=== PATIENT | female | born 1980 | race Hispanic/Latino ===

== ENCOUNTER 2018-07-12 15:16 | Emergency (ER) | payer MEDICAID ==
[2018-07-12] MEDS ORDERED: IOHEXOL-350 75 ML VIAL IV ONE (15:42)
[2018-07-12 16:17] LABS: BASOPHILS % (AUTO) 0.5 % (0.0-5.0); EOSINOPHILS % (AUTO) 1.3 % (0.0-8.0); LYMPHOCYTES % (AUTO) 32.2 % (21.0-51.0); MEAN CORPUSCULAR HEMOGLOBIN 29.1 pg (27.0-33.0); MEAN CORPUSCULAR HGB CONC 32.9 g/dL (32.0-36.0); MEAN CORPUSCULAR VOLUME 88.4 fL (79-99); MONOCYTES % (AUTO) 10.9 % (3.0-13.0); NEUTROPHILS % (AUTO) 55.1 % (40.0-77.0); NUCLEATED RED BLOOD CELLS 0.2 % (0.0-0.19); PLATELET COUNT (AUTO) 234 K/uL (130-400); WHITE BLOOD COUNT (AUTO) 6.4 K/uL (4.8-10.8)
[2018-07-12 16:28] LABS: CREATININE 0.7 mg/dL (0.5-1.5); POTASSIUM 3.6 mmol/L (3.5-5.1)
[2018-07-12 16:32] LABS: ALBUMIN 3.4 g/dL (3.5-5.0); BILIRUBIN,TOTAL 0.1 mg/dL (0.2-1.0); TOTAL PROTEIN, SERUM 6.7 g/dL (6.0-8.3)
[2018-07-12 16:36] LABS: INR 0.92 (0.85-1.15); PROTHROMBIN TIME 9.7 SEC (9.6-11.6)
[2018-07-12] MEDS ORDERED: KETOROLAC TROMETHAMINE 30MG/ML ONE (17:34)
[2018-07-12] MEDS ORDERED: TETANUS/DIPHTHERIA TOXOID [ADULT] 0.5 ML VIAL IM ONE (17:35)
[2018-07-12 17:40] LABS: APPEARANCE,URINE Clear (CLEAR); BILIRUBIN,URINE Negative (NEGATIVE); COLOR,URINE Yellow (YELLOW); GLUCOSE, URINE (UA) Negative (NEGATIVE); KETONES,URINE Negative (NEGATIVE); LEUKOCYTE ESTERASE ,URINE Small (NEGATIVE); NITRATE,URINE Negative (NEGATIVE); OCCULT BLOOD,URINE Negative (NEGATIVE); PROTEIN,URINE Negative (NEGATIVE); UROBILINOGEN,URINE 0.2 mg/dL (0.2-1.0)
[2018-07-12 17:45] LABS: HCG,QUAL RESULT NEGATIVE (NEGATIVE)
[2018-07-12 17:49] LABS: AMPHET/METH SCREEN,URINE NEGATIVE (NEGATIVE); BARBITURATE SCREEN, URINE NEGATIVE (NEGATIVE); BENZODIAZEPINES SCREEN,URINE NEGATIVE (NEGATIVE); CANNABINOID SCREEN,URINE POSITIVE (NEGATIVE); COCAINE SCREEN,URINE POSITIVE (NEGATIVE); OPIATE SCREEN,URINE NEGATIVE (NEGATIVE); PHENCYCLIDINE SCREEN,URINE NEGATIVE (NEGATIVE)
[2018-07-12 17:52] LABS: BACTERIA,URINE Rare /HPF (None Seen); RBC,URINE 0-1 /HPF (0-1)
[2018-07-12 17:53] LABS: SQUAMOUS EPITHELIAL CELL,UR Few /HPF (0-2)
== END 2018-07-12 17:50 | disposition home or self-care (01) ==
LOC: EDH 15:16
DX: S40.012A Contusion of left shoulder, initial encounter (principal); S30.1XXA Contusion of abdominal wall, initial encounter; S40.022A Contusion of left upper arm, initial encounter; S20.212A Contusion of left front wall of thorax, initial encounter; S50.02XA Contusion of left elbow, initial encounter; W17.89XA Other fall from one level to another, initial encounter; Y93.89 Activity, other specified; Y92.89 Other specified places as the place of occurrence of the external cause; Y99.8 Other external cause status; J45.909 Unspecified asthma, uncomplicated
CPT/HCPCS: 36415; 71260; 73030; 73080; 74177; 80053; 80305; 81001; 81025; 82150; 82550; 83690; 84484; 85025; 85610; 85730; 90471; 90714; 93005; 96374; 99284; J1885; Q9967

== ENCOUNTER 2022-10-06 13:19 | Emergency (ER) | payer MEDICAID ==
[~2022-10-06] VITALS: Ht 152.4 cm; Wt 44.5 kg
[2022-10-06 13:20] VITALS: BP 121/94
[2022-10-06] MEDS ORDERED: KETOROLAC 30MG VIAL (30MG/ML) IM ONE (15:30)
[2022-10-06] MEDS ORDERED: HYDROCODONE/ACETAMINOPHEN 5/325 MG TAB PO ONE (15:30)
[2022-10-06] MEDS ORDERED: ACET-2079 PO (15:32)
[2022-10-06] MEDS ORDERED: CYCL5TAB PO (15:32)
[2022-10-06] MEDS ORDERED: IBUP-2070 PO (15:32)
== END 2022-10-06 15:56 | disposition home or self-care (01) ==
LOC: EDH 13:19
DX: S63.92XA Sprain of unspecified part of left wrist and hand, initial encounter (principal); S60.222A Contusion of left hand, initial encounter; J45.909 Unspecified asthma, uncomplicated; F17.210 Nicotine dependence, cigarettes, uncomplicated; V29.99XA Rider (driver) (passenger) of other motorcycle injured in unspecified traffic accident, initial encounter; Y93.89 Activity, other specified; Y92.89 Other specified places as the place of occurrence of the external cause; Y99.8 Other external cause status
CPT/HCPCS: 99283; 73130; 96372; 29125; J1885

== ENCOUNTER 2022-12-21 19:48 | Emergency (ER) | payer MEDICAID ==
[~2022-12-21] VITALS: Ht 152.4 cm; Wt 43.5 kg
[~2022-12-21 19:48] MED LIST: ACET-2079 PO; CYCL5TAB PO; IBUP-2070 PO
[2022-12-21 20:18] VITALS: BP 114/71; PULSE 66; RESP 20
== END 2022-12-21 23:01 | disposition left against medical advice (07) ==
LOC: EDH 19:48
DX: R10.2 Pelvic and perineal pain (principal); R25.2 Cramp and spasm; Z53.21 Procedure and treatment not carried out due to patient leaving prior to being seen by health care provider
CPT/HCPCS: 99281

== ENCOUNTER 2024-05-20 14:48 | Emergency (ER) | payer BC, MEDICAID ==
[~2024-05-20] VITALS: Ht 152.4 cm; Wt 45.4 kg
[~2024-05-20 14:48] MED LIST changes: -CYCL5TAB PO; +CYCL5TAB3 PO
[2024-05-20 15:26] LABS: SARS-CoV-2, RNA, NAAT NEGATIVE SARS CoV-2 (NEGATIVE)
--- NOTE | 2024-05-20 15:30 | ERN ---
ED Note History of Present Illness Stated Complaint: FLU LIKE SYMPTOMS X 1 WEEK Chief Complaint: Flu Symptoms Time Seen by MD: 15:02 Time Seen by Midlevel: 15:20 Dictation: Ms Edwards is a 44-year-old female with history of asthma who presented to the emergency department this afternoon for evaluation of flu symptoms. She reports five days of chills, fever, productive cough (white/yellow sputum), nasal congestion, body aches and watery diarrhea. She reports nausea and poor appetite. She states she has been drinking water. She last took ibuprofen today at 9:00 a.m... She states her grandson was diagnosed with the flu and she has a daughter with similar symptoms. She states that she feels like her mouth is very dry and she is thirsty. Allergies: Coded Allergies: No Known Allergies (Unverified Allergy, Unknown, 10/06/22) Home Meds Active Scripts Cyclobenzaprine HCl (Cyclobenzaprine HCl) 5 Mg Tablet, 5 MG PO DAILYDINNER for 5 Days, #5 TAB Prov:TOYIN VERDUZCO 10/06/22 Ibuprofen (Ibuprofen) 600 Mg Tablet, 600 MG PO Q6H PRN for PAIN, #15 TAB Prov:TOYIN VERDUZCO 10/06/22 Acetaminophen with Codeine (Acetaminophen-Cod #3 Tablet) 1 Each Tablet, 1 TAB PO Q4H PRN for S63.90XA for 5 Days, #7 TAB Prov:TOYIN VERDUZCO 10/06/22 Past Medical History Past Medical History: Asthma Surgical History: Hysterectomy PSYCH History: no pertinent psych hx Social History: Negative, Lives with family RN Note Reviewed/Agreed w/PFSH: Yes Review of System Dictation REVIEW OF SYSTEMS: CONSTITUTIONAL: Patient denies sweats and weight changes. Reports fatigue, general weakness, fever, and chills EYES: Patient denies any visual symptoms. EARS, NOSE, AND THROAT: No difficulties with hearing. No symptoms of rhinitis or sore throat. Reports nasal congestion CARDIOVASCULAR: Patient denies chest pains, palpitations, orthopnea and paroxy smal nocturnal dyspnea. RESPIRATORY: No dyspnea on exertion, no wheezing. Reports cough with thick white/yellow sputum GI: No nausea, vomiting, constipation, abdominal pain, hematochezia or melena. Reports no appetite, intermittent nausea, and some liquid stools : No urinary hesitancy or dribbling. No nocturia or urinary frequency. No abnormal urethral discharge. MUSCULOSKELETAL: Reports body aches NEUROLOGIC: No chronic headaches, no seizures. Patient denies numbness, tingling or weakness. PSYCHIATRIC: Patient denies problems with mood disturbance. No problems with anxiety. ENDOCRINE: No excessive urination or excessive thirst. DERMATOLOGIC: Patient denies any rashes or skin changes. Initial Vital Sign VS Vital Signs Date Time Temp Pulse Resp B/P (MAP) Pulse Ox O2 Delivery O2 Flow Rate FiO2 05/20/24 14:54 99.0 84 20 102/60 96 Room Air 0 Physical Exam Dictation Vital signs: Reviewed. Afebrile; temp 99 Constitutional: No acute distress. Non-toxic appearing. Head/Face: Normocephalic, atraumatic. Eyes: Periorbital areas with no swelling, redness, or edema. Lids and lashes are normal. Conjunctival injection is absent. Sclera anicteric. Pupils equal, round, reactive to light. ENT: Pinnas intact and no signs of trauma or erythema. Ear canals clear and no discharge. TMs no erythema. No nasal discharge or bleeding noted. Oropharynx with no exudate, redness, swelling, masses, exudates, or evidence of obstruction. Uvula midline. Mucous membranes slightly dry Neck: Trachea midline, no masses palpated, and no cervical lymphadenopathy. No swelling. Supple, full range of motion. Chest/Axilla: No tenderness, no crepitus, no paradoxical movement, no retractions. Cardiovascular: Regular rate, regular rhythm, no murmur, no gallops. Symmetric pulses. No peripheral edema. Normotensive; BP 102/60. Heart rate 84 Respiratory: Tachypneic; RR 24. Lung sounds with inspiratory/expiratory wheeze. No rhonchi or rales. Cough noted. Room air SpO2 96% Gastrointestinal: Inspection is normal. No distention is appreciated. Bowel sounds are normal. No mass or organomegaly . There is no tenderness. No rebound. No rigidity. No voluntary or involuntary guarding. No Valenzuela's sign. Neurological: Normal speech, gross motor function intact, gross sensory function intact. No focal weakness/Paresthesia. Musculoskeletal/Extremities: All extremities have full range of motion, no pain or tenderness on palpation. Symmetric pulses. Integumentary: Intact. Skin is normal color, warm and dry. Cap refill less than 3 seconds. Results (Laboratory/Radiology) Laboratory/Radiology Laboratory Tests Test 05/20/24 14:58 Influenza Type A Antigen Positive For Type A Influenza Type B Antigen Negative For Type B SARS-CoV-2, RNA, NAAT NEGATIVE SARS CoV-2 Labs Reviewed?: Yes EKG Comment: EKG Interpretation: Time Reviewed:1506 Ventricular rate:100 bpm WV Interval: 124 ms QRS duration: [address] segment elevation or depression. Clinical impression: Sinus rhythm/sinus tachycardia EKG Reviewed and interpreted by Dr. Huertas X-RAY Comment: Chest x-ray unremarkable; no infiltrates As interpreted by myself. ED Course ED Course Orders Procedure Category Date Status Time Chest 1vw RAD 05/20/24 Resulted 14:56 Influenza Type A & B, LAB 05/20/24 Complete Rapid 14:56 Covid Rna Naat LAB 05/20/24 Complete 14:56 12 Lead Ekg Tracing- EKG 05/20/24 Logged Technical 14:56 Ondansetron Odt 4mg PHA 05/20/24 Complete Tab (Zofran 4mg Odt) 15:30 Ibuprofen 600 Mg PHA 05/20/24 Complete Tablet (Motrin) 15:30 Encourage Po Fluids CPOE 05/20/24 Transmitted 15:25 Ipratropium/Albuterol PHA 05/20/24 Complete Neb (Duoneb) 15:30 Current Medications Medications (Trade) Dose Ordered Sig/Dariusz Route PRN Reason Start Time Stop Time Status Last Admin Dose Admin Albuterol (DUOneb) 1 UDVIAL ONCE ONCE IH 05/20/24 15:30 05/20/24 15:31 DC 05/20/24 15:40 Ibuprofen (moTRIN) 600 mg ONCE ONCE PO 05/20/24 15:30 05/20/24 15:31 DC 05/20/24 15:43 Ondansetron HCl (zoFRAN 4MG ODT) 4 mg ONCE ONCE SL 05/20/24 15:30 05/20/24 15:31 DC 05/20/24 15:43 Vital Signs Date Time Temp Pulse Resp B/P (MAP) Pulse Ox O2 Delivery O2 Flow Rate FiO2 05/20/24 15:41 107 18 05/20/24 14:54 99.0 84 20 102/60 96 Room Air 0 Medical Decision Making MDM MDM: Differential diagnosis: Influenza, COVID, asthma exacerbation, community- acquired pneumonia Rationale: Tests considered and ordered secondary to shared decision making include: Lab, x-ray Previous outside records reviewed: Old ER visits. Risk of complication and/or morbidity or mortality of patient management: None Medications-Per medication reconciliation Need for hospitalization: Patient does not meet criteria for hospitalization. Need for emergency major/minor surgery: No There are no social concerns with this patient. Prescription drug management: Albuterol MDI, guaifenesin DM, ondansetron, ibuprofen, OTC Tylenol Prescriptions will include symptomatic care Patient's prior external medical records from other ER visits were reviewed by me as indicated. Prior testing and results from previous visits were reviewed. Prior tests were taken into account with medical decision making and resource utilization, independent historian/historians were used to obtain complete medical history. I independently interpreted the test that were performed, results were reviewed by me and considered findings on radiology if ordered. Medical management and examination interpretation discussions were had by me with other qualified healthcare professionals as indicated for the patient's care. DX & DISP Disposition: Discharge Departure Impression: Primary Impression: Influenza A Additional Impression: Asthma Condition: Stable Scripts Ibuprofen (Ibuprofen) 600 Mg Tablet 600 MG PO Q6H PRN for PAIN, #12 TAB 0 Refills Prov: HALIMA PINEDA NP 05/20/24 Guaifenesin/Dextromethorphan (Guaifenesin Dm Syrup) 100 Mg-10 Mg/5 Ml Syrup 5 ML PO TID for cough and congestion for 8 Days, #120 ML 0 Refills Prov: HALIMA PINEDA NP 05/20/24 Ondansetron (Ondansetron Odt) 4 Mg Tab.rapdis 4 MG PO Q6HPRN PRN for nausea, #15 TAB 0 Refills Prov: HALIMA PINEDA NP 05/20/24 Albuterol Sulfate (Ventolin Hfa) 90 Mcg Hfa.aer.ad 2 PUFF IH Q4HPRN PRN for wheezing for 30 Days, #18 GM 0 Refills Prov: HALIMA PINEDA TIRE TRIMMER HAND 05/20/24 Additional Instructions: Rest. Isolate at home until symptoms subside and you have been fever free times 24 hours. Use albuterol inhaler two puffs every 4 hours as needed for wheezing. May take guaifenesin DM syrup 5 mL every 8 hours as needed for cough and congestion. Ibuprofen 600 mg every 6 hours as needed for pain/fever. May take [id number] Tylenol as well for fever or discomfort. Ondansetron ODT sublingual every 6 hours as needed for nausea. Increase oral fluid intake. Follow up with your primary care physician in the next 2-3 days. Return to the emergency department for any worsening of symptoms or concerns. Referrals: GLYNN VALDERRAMA MD (PCP) Time of Disposition: 16:38 HALIMA PINEDA NP May 20, 2024 15:30
[2024-05-20 15:33] LABS: INFLUENZA TYPE B Negative For Type B (NEGATIVE)
[2024-05-20 15:34] LABS: INFLUENZA TYPE A Positive For Type A (NEGATIVE)
[2024-05-20] MEDS: IpraTROPium/alBUTERol SULFATE 3 ML SOLUTION IH ONE (15:40)
[2024-05-20 15:41] VITALS: PULSE 107; RESP 18
[2024-05-20] MEDS: ondanSETRON ODT 4MG TAB SL ONE (15:43)
[2024-05-20] MEDS: ibuPROFEN 600 MG TABLET PO ONE (15:43)
--- NOTE | 2024-05-20 16:31 | HMCIMG ---
CHEST 1VW CLINICAL HISTORY: FLU SX'S HX OF ASTHMA-COUGH COMPARISON: None TECHNIQUE: Single view of the chest was obtained. FINDINGS: Lungs are clear. The cardiac size and mediastinum are unremarkable. The bony structures are within normal limits. IMPRESSION: No acute cardiopulmonary process identified.
[2024-05-20] MEDS ORDERED: IBUP-2070 PO (16:36)
[2024-05-20] MEDS ORDERED: ONDA-243 PO (16:36)
[2024-05-20] MEDS: PROMETHAZINE/CODEINE 6.25-10MG/5ML CUP PO ONE (16:36)
[2024-05-20] MEDS ORDERED: GUAI5SYR PO (16:36)
[2024-05-20] MEDS ORDERED: ALBU18HF7 IH (16:36)
[2024-05-20 16:38] VITALS: BP 104/60; PULSE 82; RESP 16; TEMP 98.7; O2SAT 98
--- NOTE | 2024-05-21 06:51 | EKG ---
[facility] Test Date: 2024-05-20 Test Time: 15:06:17 Pat Name: RACHEL DAVALOS Department: ED Room: Gender: F Baccarat Manager: [id number] : 1980 Requested By: SIVAN LOZANO Order Number: [id number] Reading MD: Lowell Fontana Measurements Intervals [place] Rate: 100 P: 79 [place]: 124 QRS: 81 QRSD: 77 T: 24 QT: 338 QTc: 436 Interpretive Statements Sinus tachycardia Ventricular premature complex Compared to ECG 07/12/2018 16:10:26 Ventricular premature complex(es) now present Sinus rhythm no longer present Electronically Signed On 05-21-2024 16:35:43 ROBOTICS SYSTEMS ENGINEER by Lowell Fontana Please click the below link to view image of tracing.
--- NOTE | 2024-05-21 06:53 | EKG ---
[facility] Test Date: 2024-05-20 Test Time: 18:09:44 Pat Name: RACHEL DAVALOS Department: ED Room: Gender: F Heliarc Welder: [id number] : 1980 Requested By: SIVAN LOZANO Order Number: [id number] Reading MD: Lowell Fontana Measurements Intervals [place] Rate: 76 P: 59 [place]: 186 QRS: 3 QRSD: 81 T: 37 QT: 389 QTc: 437 Interpretive Statements Sinus rhythm Electronically Signed On 05-21-2024 16:36:16 DRIVERS LICENSE EXAMINER by Lowell Fontana Please click the below link to view image of tracing.
== END 2024-05-20 16:48 | disposition home or self-care (01) ==
LOC: EDH 14:48
DX: J10.1 Influenza due to other identified influenza virus with other respiratory manifestations (principal); J45.909 Unspecified asthma, uncomplicated; Z90.710 Acquired absence of both cervix and uterus; Z20.822 Contact with and (suspected) exposure to COVID-19
CPT/HCPCS: 99284; 71045; 87635; 87804 ×2; 93005 ×2; 94640; Q0169; 99283